=== PATIENT | male | born 2000 | race Caucasian/White ===

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

== ENCOUNTER 2020-03-26 12:03 | Emergency (ER) | payer BC, OTHER ==
[~2020-03-26] VITALS: Ht 167.6 cm; Wt 61.2 kg
[2020-03-26 12:05] VITALS: BP 144/100
--- NOTE | 2020-03-26 12:13 | NUR ---
C/O R SIDE FLANK PAIN STARTING SUDDENLY THIS MORNING ACCOMPANIED BY FREQUENT URINATION THE LAST 3-4 DAYS. PT DENIES N/V/FEVER/DYSURIA. PT STATES HE HAD A KIDNEY STONE ON THIS SIDE 1 YEAR AGO THAT HE ULTIMATELY HAD TO HAVE REMOVED BY A UROLOGIST. BED IN LOW POSITION, SIDE RAIL UP X1. PROVIDED PT WITH EMESIS BAG D/T C/O INTERMITTENT NAUSEA.
[2020-03-26] MEDS ORDERED: MORPHINE SULFATE 4 MG/ML SYR IVP ONE ×2 (12:15→13:15)
[2020-03-26] MEDS ORDERED: ONDANSETRON 4 MG/2 ML VIAL IVP ONE (12:15)
[2020-03-26] MEDS ORDERED: KETOROLAC 30 MG/ML VIAL IVP ONE ×2 (12:15→13:15)
[2020-03-26 12:31] LABS: BASOPHILS # (AUTO) 0.1 K/uL (0.00-0.22); EOSINOPHILS # (AUTO) 0.4 K/uL (0-0.4); EOSINOPHILS % (AUTO) 5.4 % (0.0-4.0); HEMATOCRIT 46.4 % (36-52); HEMOGLOBIN 15.7 g/dL (12.0-18.0); LYMPHOCYTES # (AUTO) 3.1 K/uL (2.0-11.5); LYMPHOCYTES % (AUTO) 42.4 % (20.5-51.1); MEAN CORPUSCULAR HEMOGLOBIN 29 pg (27-31); MEAN CORPUSCULAR HGB CONC 34 g/dL (33-37); MEAN CORPUSCULAR VOLUME 84.8 fL (80-94); MONOCYTES # (AUTO) 0.7 K/uL (0.8-1.0); MONOCYTES % (AUTO) 9.7 % (1.7-9.3); NEUTROPHILS % (AUTO) 41.5 % (42.2-75.2); PLATELET COUNT (AUTO) 197 K/uL (140-450); RED BLOOD CELL COUNT(AUTO) 5.47 MIL/uL (4.20-6.10); WHITE BLOOD COUNT (AUTO) 7.2 K/uL (4.5-11.0)
[2020-03-26 12:31] LABS: APPEARANCE,URINE HAZY (CLEAR); BILIRUBIN,URINE NEGATIVE (NEGATIVE); BLOOD, URINE TRACE-I (NEGATIVE); COLOR,URINE YELLOW (YELLOW); LEUKOCYTE ESTERASE ,URINE NEGATIVE (NEGATIVE); NITRITE, URINE NEGATIVE (NEGATIVE); UGLUCOSE NEGATIVE (NEGATIVE)
--- NOTE | 2020-03-26 12:35 | NUR ---
PT TAKEN TO CT
[2020-03-26 12:46] LABS: ALBUMIN 4.7 g/dL (3.4-5.0); ANION GAP 14.7 (8-16); CARBON DIOXIDE 27.9 mmol/L (21-32); CREATININE 1.2 mg/dL (0.6-1.3); POTASSIUM 3.6 mmol/L (3.5-5.1); TOTAL BILIRUBIN 0.8 mg/dL (0.0-1.0)
[2020-03-26 13:13] LABS: RBC,URINE 0-5 /HPF (0-5); WBC,URINE 0-5 /HPF (0-5)
[2020-03-26] MEDS ORDERED: HYDROmorphone PFS 2 MG/ML SYR IVP ONE (14:10)
[2020-03-26 15:19] VITALS: BP 144/100
--- NOTE | 2020-03-26 15:20 | NUR ---
Patient discharged with v/s stable. Written and verbal after care instructions given and explained. Patient alert, oriented and verbalized understanding of instructions. Ambulatory with steady gait. All questions addressed prior to discharge. ID band removed. Patient advised to follow up with PMD. Rx of NAPROSYN,NORCO, FLOMAX, & ZOFRAN given. Patient educated on indication of medication including possible reaction and side effects. Opportunity to ask questions provided and answered.
== END 2020-03-26 15:20 | disposition home or self-care (01) ==
LOC: MED 12:03
DX: N20.1 Calculus of ureter (principal); Z87.442 Personal history of urinary calculi; Z98.890 Other specified postprocedural states; Z79.899 Other long term (current) drug therapy
CPT/HCPCS: 36415; 74176; 80053; 81001; 83690; 85025; 96374; 96375; 96376; 99284; J1170; J1885; J2270; J2405